=== PATIENT | male | born 1950 | race African-American/Black ===

== ENCOUNTER 2018-07-02 15:44 | Emergency (ER) | payer OTHER ==
[~2018-07-02] VITALS: Ht 170.2 cm; Wt 72.6 kg
[2018-07-02 15:49] VITALS: Ht 170.2 cm; Wt 72.6 kg
[2018-07-02 16:39] LABS: BILIRUBIN TOTAL 0.4 mg/dL (0.20-1.00); TOTAL PROTEIN, SERUM 6.7 g/dL (6.4-8.2)
[2018-07-02 16:41] LABS: ALBUMIN 2.8 g/dL (3.4-5.0)
[2018-07-02 16:43] LABS: CARBON DIOXIDE 7.9 mmol/L (21-32); POTASSIUM SERUM 6.4 mmol/L (3.5-5.1)
[2018-07-02 16:44] LABS: CREATININE SERUM 5.7 mg/dL (0.7-1.3)
[2018-07-02 16:56] LABS: PLATELET COUNT 267 x10^3mcL (130-400)
[2018-07-02 17:00] LABS: RED CELL DISTRIBUTION WIDTH 23.6 % (11.5-14.5)
[2018-07-02] MEDS ORDERED: METFORMIN HCL500 MG (17:29)
[2018-07-02] MEDS ORDERED: GLIPIZIDE2.5 M1 (17:31)
[2018-07-02] MEDS ORDERED: COUMADIN1 MG (17:31)
[2018-07-02 18:09] LABS: BAND NEUTROPHIL 5 % (0-10); BASOPHIL 0 % (0-2); MONOCYTE 8 % (0-7); SEGMENTED NEUTROPHILS 80 % (37-75); ovalocyte/elliptocyte 1+; rbc morphology (normal/abnorm) ABNORMAL (NORMAL); schistocyte (helmet cell) 1+
[2018-07-02 18:10] LABS: PLATELET MORPHOLOGY PLATELETS NORMAL
[2018-07-02 21:36] LABS: CALCIUM 6.5 mg/dL (8.5-10.1); POTASSIUM SERUM 4.9 mmol/L (3.5-5.1)
[2018-07-02 21:38] LABS: CARBON DIOXIDE 9.7 mmol/L (21-32)
[2018-07-02 21:39] LABS: CREATININE SERUM 5.4 mg/dL (0.7-1.3)
[2018-07-02 22:04] VITALS: BP 151/77
== END 2018-07-02 22:04 | disposition short-term general hospital (02) ==
LOC: ED 15:44 → IC 17:09 → ED 22:04
PROVIDERS: Emergency Medicine
DX: E11.22 Type 2 diabetes mellitus with diabetic chronic kidney disease (principal); E11.10 Type 2 diabetes mellitus with ketoacidosis without coma; I12.9 Hypertensive chronic kidney disease with stage 1 through stage 4 chronic kidney disease, or unspecified chronic kidney disease; N18.9 Chronic kidney disease, unspecified; Z98.890 Other specified postprocedural states
CPT/HCPCS: 36600; 82962; 83880; C9132; J1815; J3430; J3490; J7030; J7042; J7613; P9016